=== PATIENT | male | born 1945 | race Caucasian/White ===

== ENCOUNTER 2024-12-10 14:10 | Outpatient (CLI) | payer OTHER, SELFPAY | END 2024-12-10 14:11 | disposition home or self-care (01) | PROVIDERS: Visit Provider Family Medicine | DX: E83.51 Hypocalcemia (principal); Z11.59 Encounter for screening for other viral diseases; Z12.5 Encounter for screening for malignant neoplasm of prostate | CPT/HCPCS: 80053; 83970; 86803; G0103 ==